=== PATIENT | male | born 1965 | race African-American/Black ===

== ENCOUNTER 2020-06-22 23:59 | Emergency (ER) | payer OTHER ==
[~2020-06-22] VITALS: Ht 180.3 cm; Wt 70.8 kg
--- NOTE | 2020-06-23 00:10 | NUR ---
PT AAOX4. BIB EMS C/O POSS HEROIN OVERDOSE. PT WAS GIVEN NARCAN 4MG INH, NARCAN 2MG WELL. 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 PT AST 84% ON ROOM AIR. PLACED ON 10L NR, BREATHING AT 100%. NO ACUTE DISTRESS NOTED. MD AT BEDSIDE FOR EVAL. PT DENIES SI AND HI. AWAITING ORDERS, WILL CONTINUE TO MONITOR.
[2020-06-23] MEDS ORDERED: ONDANSETRON HCL/PF 4 MG/2 ML VIAL ONE (00:23)
[2020-06-23] MEDS ORDERED: NALOXONE PREFILLED SYRINGE 2 MG/2 ML SYRINGE ONE (00:23)
--- NOTE | 2020-06-23 00:27 | NUR ---
IV LINE INITIATED LH 20G, AWAITING MD FOR ORDERS.
[2020-06-23] MEDS ORDERED: ONDANSETRON HCL/PF 4 MG/2 ML VIAL IV ONE (00:30)
[2020-06-23] MEDS ORDERED: NALOXONE PREFILLED SYRINGE 2 MG/2 ML SYRINGE IV ONE (00:30)
--- NOTE | 2020-06-23 01:38 | NUR ---
SPOKE TO PT, STATED HE FEELS BETTER, AAOX4. NO ACUTE DISTRESS NOTED. RR EVEN AND UNLABORED.
--- NOTE | 2020-06-23 02:13 | NUR ---
PT SAT 89% ON RA. PLACED ON 2L NC SAT 96%. RR EVEN AND UNLABORED.
--- NOTE | 2020-06-23 03:15 | NUR ---
IV removed. Catheter intact and site benign. Pressure and 4x4 applied to site. No bleeding noted.
--- NOTE | 2020-06-23 05:25 | NUR ---
PT SAT 98% ON RA. VSS.
[2020-06-23 06:13] VITALS: BP 128/71
--- NOTE | 2020-06-23 06:13 | NUR ---
Patient discharged to home in stable condition. Written and verbal after care instructions given. Patient verbalizes understanding of instruction. IV removed. Catheter intact and site benign. Pressure and 4x4 applied to site. No bleeding noted.
== END 2020-06-23 06:14 | disposition home or self-care (01) ==
LOC: ER 06-23 00:03
DX: T40.1X1A Poisoning by heroin, accidental (unintentional), initial encounter (principal); Y92.89 Other specified places as the place of occurrence of the external cause
CPT/HCPCS: 96374; 96375; 99284; J2310; J2405